=== PATIENT | female | born 1995 | race Hispanic/Latino ===

== ENCOUNTER 2020-12-28 10:05 | Outpatient (CLI) | payer OTHER, SELFPAY ==
--- NOTE | ~2020-12-28 | US_ITS ---
EXAMINATION: US OB <= 14 weeks fetus DATE: 12/28/2020 10:54 INDICATION: First trimester dating TECHNIQUE: Real-time pelvic transabdominal and transvaginal ultrasound was performed. COMPARISON: None. FINDINGS: The uterus measures 10.4 x 7.9 x 10.6 cm. There is an intrauterine gestational sac. heart motion is identified measuring 155 beats per minute (bpm) by M-mode Doppler. There is a 2.7 x 2 .8 x 0.4 cm hypoechoic areas adjacent to the gestational sac. The left ovary is not visualized however no left adnexal abnormality is seen. The right ovary measure s 2.7 x 1.7 x 1.4 cm. There is normal vascular flow in the right ovary. There is no free fluid in the pelvis. The following biometric data were obtained: Biparietal diameter (BPD): 2.0 cm; head circumference (HC): 7.7 cm; abdominal circumference (AC): 6.0 cm; femur length (FL): 0.7 cm. These measurements are concordant. Estimated weight is 61 g +/- 9 g, which correlates with the 28th percentile when 07/08/2021 is used as estimated date of delivery. As single measurements, these parameters are each equal to the following estimated gestational ages w ith ranges of +/- 2 standard deviations: BPD: 13 weeks 2 days +/- 1 weeks 1 days. HC: 13 weeks 2 days +/- 1 weeks 1 days. AC: 12 weeks 6 days +/- 1 weeks 5 days. FL: 12 weeks 2 days +/- 1 weeks 3 days. estimated gestational age based solely on measurements from this exam is 13 weeks 0 days +/- 0 weeks 6 days. IMPRESSION: 1. Live intrauterine with an estimated gestational age of 13 weeks and 0 day(s) (+/-) 6 day (s) and an estimated delivery date of 07/05/2021. 2. Subchorionic hematoma. Reviewed, dictated and finalized at location A. IMPRESSION: 1. Live intrauterine with an estimated gestational age of 13 weeks an d 0 day(s) (+/-) 6 day(s) and an estimated delivery date of 07/05/2021. 2. Subchorionic hematoma.
== END 2020-12-28 10:06 | disposition home or self-care (01) ==
PROVIDERS: PCP Obstetrics & Gynecology; Visit Provider Obstetrics & Gynecology
DX: Z34.91 Encounter for supervision of normal pregnancy, unspecified, first trimester (principal); Z3A.13 13 weeks gestation of pregnancy
CPT/HCPCS: 76801